=== PATIENT | male | born 1990 | race African-American/Black ===

== ENCOUNTER 2023-12-29 17:51 | Inpatient (IN) | payer OTHER ==
[~2023-12-29] VITALS: Ht 170.2 cm; Wt 68.0 kg
[~2023-12-29 17:51] MED LIST: ARIP20TA4 PO; MIRT-121 PO; MULT-1045 PO; QUET200T PO
[2023-12-29] MEDS: IV NORMAL SALINE 1000 ML BAG IV ONE (18:17)
[2023-12-29] MEDS ORDERED: PHENOBARBITAL SODIUM 130 MG/1 ML DISP.SYRIN ONE (18:23)
[2023-12-29] MEDS ORDERED: THIAMINE HCL 200 MG/2 ML VIAL ONE (18:25)
[2023-12-29 18:31] LABS: HEMOGLOBIN 13.6 g/dL (12.5-16.3)
[2023-12-29] MEDS: THIAMINE HCL 200 MG/2 ML VIAL IV ONE (18:37)
[2023-12-29] MEDS: PHENOBARBITAL SODIUM 130 MG/1 ML DISP.SYRIN IV ONE (18:37)
[2023-12-29 18:40] LABS: ETHANOL 403 MG/DL (0-10)
[2023-12-29 18:41] LABS: BASOPHILS # (AUTO) 0.1 K/UL (0.0-0.2); BASOPHILS % (AUTO) 0.6 % (0.0-2.0); DIFFERENTIAL COMMENT 0; EOSINOPHILS % (AUTO) 0.1 % (0.0-7.0); LYMPHOCYTES # (AUTO) 2.2 K/uL (0.8-4.8); LYMPHOCYTES % (AUTO) 20.7 % (20.5-51.5); MEAN CORPUSCULAR HEMOGLOBIN 29.1 uug (23.8-33.4); MEAN CORPUSCULAR HGB CONC 34 g/dL (32.5-36.3); MEAN CORPUSCULAR VOLUME 85.7 fL (73.0-96.2); MONOCYTES # (AUTO) 1.1 K/uL (0.1-1.30); MONOCYTES % (AUTO) 10.5 % (0.0-11.0); NEUTROPHILS # (AUTO) 7.1 K/uL (1.8-8.9); NEUTROPHILS % (AUTO) 68.1 % (38.5-71.5); PLATELET COUNT (AUTO) 345 K/uL (152-348); RED BLOOD CELL COUNT(AUTO) 4.67 MIL/uL (4.06-5.63); RED CELL DISTRIBUTION WIDTH 15.6 % (12.1-16.2); WHITE BLOOD COUNT (AUTO) 10.5 K/uL (3.6-10.2)
[2023-12-29 19:02] LABS: THYROID STIMULATING HORMONE 3.523 mIU/mL (0.358-3.740)
[2023-12-29 19:33] LABS: CARBON DIOXIDE 24 mmol/L (21-32); CHLORIDE 90 mmol/L (98-107); CREATININE 1.1 mg/dL (0.6-1.3); GLUCOSE 178 mg/dL (74-106); SODIUM SERUM 132 mmol/L (136-145); UREA NITROGEN, BLOOD 10 mg/dL (7-18)
[2023-12-29 19:41] LABS: ALANINE AMINOTRANSFERASE 38 U/L (16-63); ALKALINE PHOSPHATASE 91 U/L (50-136); ASPARTATE AMINOTRANSFERASE 29 U/L (15-37); BILIRUBIN,DIRECT 0.1 mg/dL (0.0-0.2); BILIRUBIN,TOTAL 0.4 mg/dL (0.2-1.0); TOTAL PROTEIN, SERUM 8.4 g/dL (6.4-8.2)
[2023-12-29 19:48] LABS: *BILIRUBIN,URIN NEGATIVE (NEGATIVE); *CLARITY,URINE CLEAR (CLEAR); *COLOR,URINE YELLOW (YELLOW); *KETONES,URINE NEGATIVE (NEGATIVE); *PROTEIN,URINE NEGATIVE (NEGATIVE); *UROBILINOGEN,URINE 0.2 E.U./dl (NORMAL); LEUKOCYTE ESTERASE ,URINE NEGATIVE (NEGATIVE); NITRITE, URINE NEGATIVE (NEGATIVE); UGLUCOSE NEGATIVE (NEGATIVE)
[2023-12-29 19:49] LABS: *BLOOD, URINE TRACE (NEGATIVE)
[2023-12-29 19:54] LABS: AMMONIA 33 umol/L (11-32)
[2023-12-29 19:55] LABS: ACETAMINOPHEN < 10.0 ug/mL (10-30)
[2023-12-29 20:00] LABS: *AMPHETAMINE, URINE NEGATIVE (NEGATIVE); *BARBITURATE, URINE NEGATIVE (NEGATIVE); *BENZODIAZEPINE, URINE NEGATIVE (NEGATIVE); *CANNABINOID, URINE NEGATIVE (NEGATIVE); *COCCAINE, URINE NEGATIVE (NEGATIVE); *OPIATE, URINE NEGATIVE (NEGATIVE); *PHENCYCLIDINE SCREEN,URINE NEGATIVE (NEGATIVE); BACTERIA,URINE NONE SEEN /HPF (NONE SEEN); RBC,URINE 0-3 /HPF (0-3); SQUAMOUS EPITHELIAL CELL,UR NONE SEEN /HPF (NONE SEEN); WBC,URINE NONE SEEN /HPF (0-3)
[2023-12-29 20:01] LABS: FENTANYL, URINE NEGATIVE (NEGATIVE)
[2023-12-29] MEDS ORDERED: LORAZEPAM 1 MG TABLET ONE (20:47)
[2023-12-29] MEDS: LORAZEPAM 0.5 MG TABLET PO ONE (20:49)
[2023-12-29 22:45] VITALS: BP 133/70; TEMP 98.6; O2SAT 99
[2023-12-29] MEDS ORDERED: ZOLPIDEM 5 MG TABLET PO PRN (23:30)
[2023-12-29] MEDS ORDERED: MAGNESIUM HYDROXIDE 30 ML LIQUID UDC PO PRN (23:30)
[2023-12-29] MEDS ORDERED: ONDANSETRON 4 MG/2 ML VIAL IV PRN (23:30)
[2023-12-29] MEDS ORDERED: REMEDY ESSENTIAL ZINC PASTE 113 GM TP PRN (23:30)
[2023-12-30] MEDS: IV NS 1000 ML 1,000 ML IV PRN (00:05)
[2023-12-30] MEDS ORDERED: THIAMINE HCL 200 MG/2 ML VIAL ONE (00:31)
[2023-12-30] MEDS ORDERED: FOLIC ACID 5 MG/ML VIAL IV ONE (00:31)
[2023-12-30] MEDS: ACETAMINOPHEN 325 MG TABLET PO PRN (02:51)
[2023-12-30 04:00] VITALS: BP 114/54; TEMP 98.4; O2SAT 98
[2023-12-30] MEDS: LORAZEPAM 1 MG TABLET PO PRN (05:27)
[2023-12-30] MEDS ORDERED: THIAMINE HCL INJ 100 MG in IV DEXTROSE 5% 50 ML IV SCH ×3 (06:30→18:00)
[2023-12-30 07:29] LABS: BASOPHILS % (AUTO) 0.9 % (0.0-2.0); EOSINOPHILS % (AUTO) 0.7 % (0.0-7.0); HEMATOCRIT 38.9 % (36.7-47.1); LYMPHOCYTES # (AUTO) 1.5 K/uL (0.8-4.8); LYMPHOCYTES % (AUTO) 28.9 % (20.5-51.5); MEAN CORPUSCULAR HEMOGLOBIN 29.1 uug (23.8-33.4); MEAN CORPUSCULAR HGB CONC 33 g/dL (32.5-36.3); MEAN CORPUSCULAR VOLUME 86.9 fL (73.0-96.2); MONOCYTES # (AUTO) 0.6 K/uL (0.1-1.30); NEUTROPHILS % (AUTO) 58.5 % (38.5-71.5); PLATELET COUNT (AUTO) 290 K/uL (152-348); RED BLOOD CELL COUNT(AUTO) 4.48 MIL/uL (4.06-5.63); RED CELL DISTRIBUTION WIDTH 16.1 % (12.1-16.2); WHITE BLOOD COUNT (AUTO) 5.1 K/uL (3.6-10.2)
[2023-12-30 07:34] LABS: DIFFERENTIAL COMMENT 1
[2023-12-30 07:42] LABS: CALCIUM 8.3 mg/dL (8.5-10.1); CREATININE 0.9 mg/dL (0.6-1.3); MAGNESIUM 1.9 mg/dL (1.8-2.4); POTASSIUM 3.8 mmol/L (3.5-5.1)
[2023-12-30 08:00] VITALS: BP 135/81; TEMP 97.6; O2SAT 96
[2023-12-30] MEDS: MULTIVITAMINS,THERAPEUTIC TABLET PO SCH (08:25)
[2023-12-30] MEDS: CHLORDIAZEPOXIDE HCL 25 MG CAPSULE PO SCH (08:25)
[2023-12-30] MEDS ORDERED: FOLIC ACID 1 MG in IV DEXTROSE 5% 50 ML IV SCH (09:00)
[2023-12-30] MEDS ORDERED: ARIPIPRAZOLE 10 MG TABLET PO SCH ×2 (09:00)
[2023-12-30] MEDS: FOLIC ACID 1 MG TABLET PO SCH (09:40)
[2023-12-30] MEDS: THIAMINE HCL 100 MG TABLET PO SCH (09:43)
[2023-12-30] MEDS: LORAZEPAM 2 MG/1 ML VIAL IV PRN (12:01)
[2023-12-30] MEDS ORDERED: TRAMADOL HCL 50 MG TABLET PO PRN (15:15)
[2023-12-30 15:35] VITALS: BP 136/91; TEMP 98.5; O2SAT 96
[2023-12-30] MEDS ORDERED: QUETIAPINE FUMARATE 200 MG TABLET PO SCH ×2 (21:00)
[2023-12-30] MEDS ORDERED: MIRTAZAPINE 15 MG TABLET PO SCH ×2 (21:00)
== END 2023-12-30 18:10 | disposition home or self-care (01) | DRG 816 ==
LOC: ER 17:52 → TELE3 22:31
PROVIDERS: ADMIT Nurse Practitioner Acute Care; ATTEND Nurse Practitioner Acute Care
DX: T51.0X1A Toxic effect of ethanol, accidental (unintentional), initial encounter (principal); G92.8 Other toxic encephalopathy; E87.1 Hypo-osmolality and hyponatremia; F10.239 Alcohol dependence with withdrawal, unspecified; E87.6 Hypokalemia; K76.0 Fatty (change of) liver, not elsewhere classified; E86.0 Dehydration; F10.229 Alcohol dependence with intoxication, unspecified; Y92.89 Other specified places as the place of occurrence of the external cause; Y90.8 Blood alcohol level of 240 mg/100 ml or more; R03.0 Elevated blood-pressure reading, without diagnosis of hypertension
CPT/HCPCS: 36415; 70450; 71045; 72125; 83735; 84100; 84443; 84484; 85025; 85730; 93005; A4663; G0378; G0480; J2060; J2560; J3411; J3490; J7040

== ENCOUNTER 2024-01-05 17:49 | Emergency (ER) | payer OTHER ==
[~2024-01-05] VITALS: Ht 167.6 cm; Wt 59.0 kg
[2024-01-05] MEDS: THIAMINE HCL 200 MG/2 ML VIAL IV ONE (19:00)
[2024-01-05] MEDS: PHENOBARBITAL SODIUM 130 MG/1 ML DISP.SYRIN IV ONE ×2 (19:00→22:53)
[2024-01-05 20:20] LABS: ETHANOL 206 MG/DL (0-10)
[2024-01-05 20:21] LABS: AMMONIA 24 umol/L (11-32)
[2024-01-05 20:22] LABS: CALCIUM 8.8 mg/dL (8.5-10.1); CARBON DIOXIDE 20 mmol/L (21-32); CHLORIDE 90 mmol/L (98-107); CREATININE 0.8 mg/dL (0.6-1.3); GLUCOSE 83 mg/dL (74-106); POTASSIUM 4.1 mmol/L (3.5-5.1); SODIUM SERUM 131 mmol/L (136-145); UREA NITROGEN, BLOOD 12 mg/dL (7-18)
[2024-01-05] MEDS ORDERED: THIAMINE HCL 200 MG/2 ML VIAL ONE (20:36)
[2024-01-05] MEDS ORDERED: PHENOBARBITAL SODIUM 130 MG/1 ML DISP.SYRIN ONE ×2 (20:36→22:51)
[2024-01-05 20:38] LABS: ALANINE AMINOTRANSFERASE 30 U/L (16-63); ALBUMIN 3.9 g/dL (3.4-5.0); ALKALINE PHOSPHATASE 90 U/L (50-136); ASPARTATE AMINOTRANSFERASE 42 U/L (15-37); BILIRUBIN,DIRECT 0.2 mg/dL (0.0-0.2); BILIRUBIN,TOTAL 0.8 mg/dL (0.2-1.0); LIPASE 63 U/L (16-77); TOTAL PROTEIN, SERUM 8.2 g/dL (6.4-8.2)
[2024-01-05 20:41] LABS: BASOPHILS # (AUTO) 0.1 K/UL (0.0-0.2); BASOPHILS % (AUTO) 1.2 % (0.0-2.0); DIFFERENTIAL COMMENT 0; HEMATOCRIT 40.7 % (36.7-47.1); HEMOGLOBIN 14.2 g/dL (12.5-16.3); LYMPHOCYTES # (AUTO) 2.7 K/uL (0.8-4.8); LYMPHOCYTES % (AUTO) 32.2 % (20.5-51.5); MEAN CORPUSCULAR HEMOGLOBIN 29.8 uug (23.8-33.4); MEAN CORPUSCULAR HGB CONC 35 g/dL (32.5-36.3); MEAN CORPUSCULAR VOLUME 85.2 fL (73.0-96.2); MONOCYTES # (AUTO) 0.6 K/uL (0.1-1.30); MONOCYTES % (AUTO) 7.4 % (0.0-11.0); NEUTROPHILS # (AUTO) 5.1 K/uL (1.8-8.9); NEUTROPHILS % (AUTO) 59.2 % (38.5-71.5); PLATELET COUNT (AUTO) 285 K/uL (152-348); RED BLOOD CELL COUNT(AUTO) 4.78 MIL/uL (4.06-5.63); RED CELL DISTRIBUTION WIDTH 16.8 % (12.1-16.2); WHITE BLOOD COUNT (AUTO) 8.5 K/uL (3.6-10.2)
[2024-01-05 20:44] LABS: ACETAMINOPHEN < 2.0 ug/mL (10-30)
[2024-01-05] MEDS: IV NORMAL SALINE 1000 ML BAG IV ONE (22:49)
[2024-01-06] MEDS ORDERED: PHENOBARBITAL SODIUM 130 MG/1 ML DISP.SYRIN ONE (01:08)
[2024-01-06] MEDS: PHENOBARBITAL SODIUM 130 MG/1 ML DISP.SYRIN IV ONE (01:12)
[2024-01-06] MEDS ORDERED: METOCLOPRAMIDE HCL 10 MG/2 ML VIAL ONE (01:57)
[2024-01-06] MEDS ORDERED: diphenhydrAMINE 50 MG/1 ML VIAL ONE (01:58)
[2024-01-06] MEDS: METOCLOPRAMIDE HCL 10 MG/2 ML VIAL IV ONE (02:04)
[2024-01-06] MEDS: diphenhydrAMINE 50 MG/1 ML VIAL IV ONE (02:04)
[2024-01-06] MEDS ORDERED: MAG HYDROX/AL HYDROX/SIMETH 30 ML LIQUID UDC ONE (05:25)
[2024-01-06] MEDS ORDERED: LIDOCAINE VISCUS 2% 15 ML UDC ONE (05:25)
[2024-01-06] MEDS: MAG HYDROX/AL HYDROX/SIMETH 30 ML LIQUID UDC PO ONE (05:28)
[2024-01-06] MEDS: LIDOCAINE VISCUS 2% 15 ML UDC MM ONE (05:28)
[2024-01-06 05:57] LABS: ETHANOL < 3 MG/DL (0-10)
[2024-01-06] MEDS ORDERED: CHLO25CA22 PO (10:00)
[2024-01-06 10:29] VITALS: O2SAT 98
== END 2024-01-06 10:31 | disposition home or self-care (01) ==
LOC: ER 17:50
DX: F10.129 Alcohol abuse with intoxication, unspecified (principal); R45.851 Suicidal ideations; Z79.899 Other long term (current) drug therapy
CPT/HCPCS: 80076; 80048; 82140; 83690; 85025; 85730; 84484; 36415 ×2; 93005; 71045; 99285; 96361; 96374; 96375 ×2; 96376 ×2; 80299; 80320 ×2; 74176; J2560 ×3; J3411; J1200; J2765; A4606; A4663; G0480

== ENCOUNTER 2024-05-05 17:03 | Inpatient (IN) | payer MEDICAID, OTHER ==
[~2024-05-05] VITALS: Ht 170.2 cm; Wt 72.6 kg
[~2024-05-05 17:03] MED LIST changes: +CHLO25CA22 PO
[2024-05-05] MEDS: IV NORMAL SALINE 1000 ML BAG IV ONE (17:34)
[2024-05-05] MEDS ORDERED: ONDANSETRON 4 MG/2 ML VIAL ONE (17:35)
[2024-05-05] MEDS ORDERED: LORAZEPAM 2 MG/1 ML VIAL ONE (17:36)
[2024-05-05] MEDS: ONDANSETRON 4 MG/2 ML VIAL IV ONE (17:42)
[2024-05-05] MEDS: LORAZEPAM 2 MG/1 ML VIAL IV ONE (17:42)
[2024-05-05 18:12] LABS: CALCIUM 8.4 mg/dL (8.5-10.1); CREATININE 1.1 mg/dL (0.6-1.3); POTASSIUM 4.5 mmol/L (3.5-5.1)
[2024-05-05 18:30] LABS: ALBUMIN 3.6 g/dL (3.4-5.0); BASOPHILS % (AUTO) 0.4 % (0.0-2.0); BILIRUBIN,DIRECT 0.2 mg/dL (0.0-0.2); DIFFERENTIAL COMMENT 0; HEMATOCRIT 42.7 % (36.7-47.1); HEMOGLOBIN 14.4 g/dL (12.5-16.3); LYMPHOCYTES # (AUTO) 0.8 K/uL (0.8-4.8); LYMPHOCYTES % (AUTO) 9.5 % (20.5-51.5); MEAN CORPUSCULAR HEMOGLOBIN 29.4 uug (23.8-33.4); MEAN CORPUSCULAR HGB CONC 34 g/dL (32.5-36.3); MEAN CORPUSCULAR VOLUME 87.4 fL (73.0-96.2); MONOCYTES # (AUTO) 0.4 K/uL (0.1-1.30); NEUTROPHILS # (AUTO) 7.3 K/uL (1.8-8.9); NEUTROPHILS % (AUTO) 85.1 % (38.5-71.5); PLATELET COUNT (AUTO) 158 K/uL (152-348); RED BLOOD CELL COUNT(AUTO) 4.88 MIL/uL (4.06-5.63); RED CELL DISTRIBUTION WIDTH 15.1 % (12.1-16.2); TOTAL PROTEIN, SERUM 7.9 g/dL (6.4-8.2); WHITE BLOOD COUNT (AUTO) 8.5 K/uL (3.6-10.2)
[2024-05-05 18:56] LABS: LACTIC ACID 5.5 mmol/L (0.4-2.0)
[2024-05-05] MEDS ORDERED: PIPERACILLIN/TAZOBACTAM/D5W 50 ML IV ONE (19:14)
[2024-05-05] MEDS ORDERED: MORPHINE SULFATE 4 MG/1 ML DISP.SYRIN ONE (19:15)
[2024-05-05] MEDS: MORPHINE SULFATE 4 MG/1 ML DISP.SYRIN IV ONE (19:18)
[2024-05-05] MEDS: PIPERACILLIN SODIUM/TAZOBACTAM 3.375 G in IV DEXTROSE 5% 50 ML IV ONE (19:20)
[2024-05-05 20:28] LABS: *BILIRUBIN,URIN NEGATIVE (NEGATIVE); *BLOOD, URINE 2+ (NEGATIVE); *CLARITY,URINE CLEAR (CLEAR); *COLOR,URINE DARK YELLOW (YELLOW); *KETONES,URINE 4+ (NEGATIVE); *UROBILINOGEN,URINE 0.2 E.U./dl (NORMAL); LEUKOCYTE ESTERASE ,URINE NEGATIVE (NEGATIVE); NITRITE, URINE NEGATIVE (NEGATIVE); PH,URINE 5.5 (5.0-8.0); UGLUCOSE NEGATIVE (NEGATIVE)
[2024-05-05 20:40] LABS: *AMPHETAMINE, URINE NEGATIVE (NEGATIVE); *BARBITURATE, URINE NEGATIVE (NEGATIVE); *BENZODIAZEPINE, URINE NEGATIVE (NEGATIVE); *CANNABINOID, URINE NEGATIVE (NEGATIVE); *COCCAINE, URINE NEGATIVE (NEGATIVE); *OPIATE, URINE POSITIVE (NEGATIVE); *PHENCYCLIDINE SCREEN,URINE NEGATIVE (NEGATIVE); *PROTEIN,URINE 3+ (NEGATIVE); FENTANYL, URINE NEGATIVE (NEGATIVE)
[2024-05-05] MEDS ORDERED: REMEDY ESSENTIAL ZINC PASTE 113 GM TP PRN (21:00)
[2024-05-05 21:07] VITALS: BP 135/89; TEMP 99; O2SAT 99
[2024-05-05] MEDS: QUETIAPINE FUMARATE 200 MG TABLET PO SCH (21:18)
[2024-05-05] MEDS: MIRTAZAPINE 15 MG TABLET PO SCH (21:18)
[2024-05-05] MEDS: ENOXAPARIN SODIUM 40 MG/0.4 ML DISP.SYRIN SQ SCH (21:49)
[2024-05-05 22:20] LABS: BACTERIA,URINE FEW /HPF (NONE SEEN); MUCUS,URINE MANY /LPF (0-FEW); SQUAMOUS EPITHELIAL CELL,UR NONE SEEN /HPF (NONE SEEN); WBC,URINE 0-3 /HPF (0-3)
[2024-05-05] MEDS: IV LACTATED RINGERS SOLUTION 1,000 ML IV PRN (22:29)
[2024-05-05] MEDS: LORAZEPAM 2 MG/1 ML VIAL IV PRN (22:33)
[2024-05-05 23:55] VITALS: BP 125/64; TEMP 98.9; O2SAT 98
[2024-05-06] MEDS: CHLORDIAZEPOXIDE HCL 25 MG CAPSULE PO SCH (02:48)
[2024-05-06] MEDS: ACETAMINOPHEN 325 MG TABLET PO PRN (02:49)
[2024-05-06] MEDS: IV NORMAL SALINE 1000 ML BAG IV ONE (02:49)
[2024-05-06 04:44] VITALS: BP 121/66; TEMP 99.1; O2SAT 97
[2024-05-06] MEDS ORDERED: CHLORDIAZEPOXIDE HCL 25 MG CAPSULE PO PRN (05:45)
[2024-05-06 07:36] LABS: THYROID STIMULATING HORMONE 2.615 mIU/mL (0.358-3.740)
[2024-05-06 08:00] VITALS: BP 136/66; TEMP 98.4; O2SAT 98
[2024-05-06] MEDS: MULTIVITAMINS,THERAPEUTIC TABLET PO SCH (08:24)
[2024-05-06 08:41] LABS: BASOPHILS % (AUTO) 0.7 % (0.0-2.0); EOSINOPHILS % (AUTO) 0.4 % (0.0-7.0); HEMATOCRIT 33.6 % (36.7-47.1); HEMOGLOBIN 11.3 g/dL (12.5-16.3); LYMPHOCYTES # (AUTO) 1.3 K/uL (0.8-4.8); LYMPHOCYTES % (AUTO) 27.9 % (20.5-51.5); MEAN CORPUSCULAR HEMOGLOBIN 29.3 uug (23.8-33.4); MEAN CORPUSCULAR HGB CONC 34 g/dL (32.5-36.3); MEAN CORPUSCULAR VOLUME 87.1 fL (73.0-96.2); MONOCYTES # (AUTO) 0.4 K/uL (0.1-1.30); MONOCYTES % (AUTO) 8.4 % (0.0-11.0); NEUTROPHILS # (AUTO) 2.8 K/uL (1.8-8.9); NEUTROPHILS % (AUTO) 62.6 % (38.5-71.5); PLATELET COUNT (AUTO) 100 K/uL (152-348); RED BLOOD CELL COUNT(AUTO) 3.86 MIL/uL (4.06-5.63); WHITE BLOOD COUNT (AUTO) 4.5 K/uL (3.6-10.2)
[2024-05-06 08:50] LABS: DIFFERENTIAL COMMENT 1
[2024-05-06] MEDS ORDERED: ARIPIPRAZOLE 10 MG TABLET PO SCH ×2 (09:00)
[2024-05-06 09:04] LABS: ALANINE AMINOTRANSFERASE 37 U/L (16-63); ALBUMIN 2.8 g/dL (3.4-5.0); ALKALINE PHOSPHATASE 71 U/L (50-136); ASPARTATE AMINOTRANSFERASE 68 U/L (15-37); BILIRUBIN,TOTAL 1.2 mg/dL (0.2-1.0); CALCIUM 8.1 mg/dL (8.5-10.1); CARBON DIOXIDE 26 mmol/L (21-32); CHLORIDE 97 mmol/L (98-107); CHOLESTEROL 183 mg/dL (<200); CREATININE 1.1 mg/dL (0.6-1.3); GLUCOSE 180 mg/dL (74-106); HDL CHOLESTEROL 67 mg/dL (40-60); MAGNESIUM 1.7 mg/dL (1.8-2.4); PHOSPHOROUS 1.6 mg/dL (2.5-4.9); POTASSIUM 3.4 mmol/L (3.5-5.1); SODIUM SERUM 131 mmol/L (136-145); TOTAL PROTEIN, SERUM 5.5 g/dL (6.4-8.2); TRIGLYCERIDES 164 MG/DL (30-150); UREA NITROGEN, BLOOD 13 mg/dL (7-18)
[2024-05-06] MEDS: THIAMINE HCL 100 MG TABLET PO SCH (09:13)
[2024-05-06] MEDS: MORPHINE SULFATE 2 MG/1 ML DISP.SYRIN IV PRN (09:13)
[2024-05-06] MEDS: FOLIC ACID 1 MG TABLET PO SCH (09:13)
[2024-05-06] MEDS: PANTOPRAZOLE SODIUM 40 MG VIAL IV SCH (09:13)
[2024-05-06 09:16] LABS: LIPASE > 375 U/L (16-77)
[2024-05-06] MEDS: NEUTRA PHOS PACKET PO ONE (10:35)
[2024-05-06] MEDS: MAGNESIUM SULFATE/D5W 100 ML IV SCH (10:36)
[2024-05-06] MEDS ORDERED: MORPHINE SULFATE 4 MG/1 ML DISP.SYRIN IV PRN (10:45)
[2024-05-06] MEDS: LORAZEPAM 2 MG/1 ML VIAL IV PRN (11:01)
[2024-05-06 11:39] VITALS: BP 132/81; TEMP 97; O2SAT 97
[2024-05-06] MEDS: MORPHINE SULFATE 2 MG/1 ML DISP.SYRIN IV ONE (12:21)
[2024-05-06 16:00] VITALS: BP 134/70; TEMP 98.8; O2SAT 99
[2024-05-06] MEDS: MORPHINE SULFATE 4 MG/1 ML DISP.SYRIN IV PRN (17:23)
[2024-05-06] MEDS: MAGNESIUM HYDROXIDE 30 ML LIQUID UDC PO PRN (18:43)
[2024-05-06 20:00] VITALS: BP 134/94; TEMP 97.5; O2SAT 97
[2024-05-06] MEDS ORDERED: MIRTAZAPINE 15 MG TABLET PO SCH (21:00)
[2024-05-06] MEDS ORDERED: QUETIAPINE FUMARATE 200 MG TABLET PO SCH (21:00)
[2024-05-07] VITALS (7 sets, daily range): BP systolic 121–140; BP diastolic 64–87; TEMP 97.6–98.7; O2SAT 97–100
[2024-05-07 07:25] LABS: BASOPHILS % (AUTO) 0.5 % (0.0-2.0); EOSINOPHILS # (AUTO) 0.1 K/uL (0.0-0.7); EOSINOPHILS % (AUTO) 1.4 % (0.0-7.0); HEMATOCRIT 39.5 % (36.7-47.1); HEMOGLOBIN 13.3 g/dL (12.5-16.3); LYMPHOCYTES # (AUTO) 1.2 K/uL (0.8-4.8); LYMPHOCYTES % (AUTO) 24.8 % (20.5-51.5); MEAN CORPUSCULAR HEMOGLOBIN 29.7 uug (23.8-33.4); MEAN CORPUSCULAR HGB CONC 34 g/dL (32.5-36.3); MEAN CORPUSCULAR VOLUME 88.4 fL (73.0-96.2); MONOCYTES # (AUTO) 0.3 K/uL (0.1-1.30); MONOCYTES % (AUTO) 7.3 % (0.0-11.0); NEUTROPHILS # (AUTO) 3.1 K/uL (1.8-8.9); PLATELET COUNT (AUTO) 102 K/uL (152-348); RED BLOOD CELL COUNT(AUTO) 4.46 MIL/uL (4.06-5.63); RED CELL DISTRIBUTION WIDTH 15.1 % (12.1-16.2); WHITE BLOOD COUNT (AUTO) 4.7 K/uL (3.6-10.2)
[2024-05-07 07:28] LABS: DIFFERENTIAL COMMENT 1
[2024-05-07 07:37] LABS: ALANINE AMINOTRANSFERASE 38 U/L (16-63); ALBUMIN 3.3 g/dL (3.4-5.0); ALKALINE PHOSPHATASE 80 U/L (50-136); ASPARTATE AMINOTRANSFERASE 60 U/L (15-37); BILIRUBIN,TOTAL 0.5 mg/dL (0.2-1.0); CARBON DIOXIDE 30 mmol/L (21-32); CHLORIDE 101 mmol/L (98-107); CREATININE 0.9 mg/dL (0.6-1.3); GLUCOSE 70 mg/dL (74-106); MAGNESIUM 1.9 mg/dL (1.8-2.4); POTASSIUM 3.5 mmol/L (3.5-5.1); SODIUM SERUM 139 mmol/L (136-145); TOTAL PROTEIN, SERUM 6.8 g/dL (6.4-8.2); UREA NITROGEN, BLOOD 10 mg/dL (7-18)
[2024-05-07 08:16] LABS: CALCIUM 8.8 mg/dL (8.5-10.1)
[2024-05-07 08:30] LABS: LIPASE > 375 U/L (16-77)
[2024-05-07] MEDS: ONDANSETRON 4 MG/2 ML VIAL IV PRN (08:53)
[2024-05-07] MEDS: NEUTRA PHOS PACKET PO ONE (10:56)
[2024-05-08] VITALS: BP 123/64; TEMP 98.4; O2SAT 97
[2024-05-08 04:00] VITALS: BP 123/61; TEMP 97.6; O2SAT 96
[2024-05-08 07:53] VITALS: BP 131/86; TEMP 97.9; O2SAT 98
[2024-05-08 12:49] VITALS: BP 133/93; TEMP 97.9; O2SAT 98
[2024-05-08 15:55] VITALS: BP 135/89; TEMP 97.8; O2SAT 98
[2024-05-08] MEDS: PANTOPRAZOLE SODIUM 40 MG TABLET.DR PO SCH (16:50)
[2024-05-08 20:00] VITALS: BP 130/80; TEMP 98.8; O2SAT 95
[2024-05-08] MEDS: CHLORDIAZEPOXIDE HCL 25 MG CAPSULE PO PRN (22:28)
[2024-05-09 04:00] VITALS: BP 103/68; TEMP 96.5; O2SAT 97
[2024-05-09 07:53] LABS: BASOPHILS % (AUTO) 0.9 % (0.0-2.0); EOSINOPHILS # (AUTO) 0.2 K/uL (0.0-0.7); EOSINOPHILS % (AUTO) 3.4 % (0.0-7.0); HEMATOCRIT 41.8 % (36.7-47.1); HEMOGLOBIN 13.9 g/dL (12.5-16.3); LYMPHOCYTES # (AUTO) 2.2 K/uL (0.8-4.8); LYMPHOCYTES % (AUTO) 43.3 % (20.5-51.5); MEAN CORPUSCULAR HEMOGLOBIN 29.6 uug (23.8-33.4); MEAN CORPUSCULAR HGB CONC 33 g/dL (32.5-36.3); MEAN CORPUSCULAR VOLUME 88.7 fL (73.0-96.2); MONOCYTES # (AUTO) 0.5 K/uL (0.1-1.30); NEUTROPHILS # (AUTO) 2.2 K/uL (1.8-8.9); NEUTROPHILS % (AUTO) 43.4 % (38.5-71.5); PLATELET COUNT (AUTO) 165 K/uL (152-348); RED BLOOD CELL COUNT(AUTO) 4.71 MIL/uL (4.06-5.63); RED CELL DISTRIBUTION WIDTH 14.7 % (12.1-16.2); WHITE BLOOD COUNT (AUTO) 5.1 K/uL (3.6-10.2)
[2024-05-09 08:04] LABS: ALBUMIN 3.5 g/dL (3.4-5.0); BILIRUBIN,TOTAL 0.4 mg/dL (0.2-1.0); CALCIUM 9.1 mg/dL (8.5-10.1); CREATININE 0.9 mg/dL (0.6-1.3); MAGNESIUM 1.8 mg/dL (1.8-2.4); PHOSPHOROUS 3.7 mg/dL (2.5-4.9); POTASSIUM 3.9 mmol/L (3.5-5.1); TOTAL PROTEIN, SERUM 7.6 g/dL (6.4-8.2)
[2024-05-09 08:07] LABS: DIFFERENTIAL COMMENT 1
[2024-05-09 11:49] VITALS: BP 126/68; TEMP 98.2; O2SAT 97
[2024-05-09] MEDS: MIRALAX 17 GM POWD.PACK PO SCH (14:36)
[2024-05-09] MEDS: BISACODYL 10 MG SUPP.RECT RC ONE (14:37)
[2024-05-09 16:00] VITALS: BP 116/56; TEMP 98.7; O2SAT 98
[2024-05-09 20:00] VITALS: BP_SYST 156; BP_SYST 179; BP_DIAS 80; BP_DIAS 92; TEMP 98.2; O2SAT 94; O2SAT 98
[2024-05-09] MEDS: LORAZEPAM 1 MG TABLET PO PRN (22:34)
[2024-05-10] VITALS: BP 124/75; TEMP 98.3; O2SAT 97
[2024-05-10 00:02] LABS: ABG BASE EXCESS -9.5 mmol/L (-2.0-2.0); ABG HCO3 13.9 mmol/L (22.0-26.0); ABG PCO2 24.8 mmHg (35.0-48.0); ABG PH 7.366 (7.340-7.440); ABG SITE RIGHT BRACHIAL; ABG TOTAL HEMOGLOBIN 14.1 G/dL (14.0-18.0); AaDO2 85.1 mmHg; COHb 0.3 % (0.0-3.9); MetHb 0.4 % (0.0-1.5)
[2024-05-10 06:00] VITALS: BP 110/71; TEMP 97.8; O2SAT 100
[2024-05-10 08:00] VITALS: BP 114/71; TEMP 97.8; O2SAT 99
[2024-05-10 08:03] LABS: CALCIUM 8.8 mg/dL (8.5-10.1); CREATININE 0.9 mg/dL (0.6-1.3); MAGNESIUM 1.9 mg/dL (1.8-2.4); POTASSIUM 3.9 mmol/L (3.5-5.1)
[2024-05-10] MEDS: ARIPIPRAZOLE 10 MG TABLET PO SCH (08:31)
[2024-05-10] MEDS: OXYCODONE/APAP 5-325 MG TABLET PO PRN (10:22)
[2024-05-10 11:51] VITALS: BP 117/62; TEMP 97.7; O2SAT 99
[2024-05-10] MEDS: CLONAZEPAM 1 MG TABLET PO PRN (13:05)
[2024-05-10 15:54] VITALS: BP 118/66; TEMP 97.8; O2SAT 99
[2024-05-10 20:00] VITALS: BP 108/51; TEMP 98.2; O2SAT 96
[2024-05-10] MEDS: MIRTAZAPINE 15 MG TABLET PO SCH (20:25)
[2024-05-10] MEDS: QUETIAPINE FUMARATE 200 MG TABLET PO SCH (20:27)
[2024-05-11 06:00] VITALS: BP 97/48; TEMP 98.1; O2SAT 100
[2024-05-11 07:43] LABS: CALCIUM 8.7 mg/dL (8.5-10.1); CARBON DIOXIDE 26 mmol/L (21-32); CHLORIDE 107 mmol/L (98-107); GLUCOSE 113 mg/dL (74-106); POTASSIUM 3.5 mmol/L (3.5-5.1); SODIUM SERUM 142 mmol/L (136-145); UREA NITROGEN, BLOOD 15 mg/dL (7-18)
[2024-05-11 07:54] LABS: LIPASE > 375 U/L (16-77)
[2024-05-11 11:54] VITALS: BP 110/67; TEMP 97.9; O2SAT 96
[2024-05-11] MEDS: CLONAZEPAM 1 MG TABLET PO ONE (12:01)
[2024-05-11 16:30] VITALS: BP 118/79; TEMP 98.6; O2SAT 98
[2024-05-12 07:13] VITALS: BP 118/71; TEMP 98.1; O2SAT 98
[2024-05-12] MEDS ORDERED: ARIP20TA4 PO (08:58)
[2024-05-12] MEDS ORDERED: OXYC-128 PO (08:58)
[2024-05-12] MEDS ORDERED: THIA100T68 PO (08:58)
[2024-05-12] MEDS ORDERED: MIRT-73 PO (08:58)
[2024-05-12] MEDS ORDERED: QUET200T PO (08:58)
[2024-05-12] MEDS ORDERED: PANT40TA2 PO (08:58)
== END 2024-05-12 10:20 | disposition home or self-care (01) | DRG 426 ==
LOC: ER 17:04 → TELE3 20:35 → MEDSURG3 05-08 10:05
PROVIDERS: ADMIT Nurse Practitioner Acute Care; ATTEND Nurse Practitioner Acute Care
PROC: 05HC33Z Insertion of Infusion Device into Left Basilic Vein, Percutaneous Approach (ICD-10-PCS; principal; 2024-05-08)
DX: E87.1 Hypo-osmolality and hyponatremia (principal); E87.29 Other acidosis; K86.0 Alcohol-induced chronic pancreatitis; E83.39 Other disorders of phosphorus metabolism; K70.0 Alcoholic fatty liver; K70.9 Alcoholic liver disease, unspecified; F31.9 Bipolar disorder, unspecified; F10.229 Alcohol dependence with intoxication, unspecified; Y90.6 Blood alcohol level of 120-199 mg/100 ml; E87.6 Hypokalemia; F41.9 Anxiety disorder, unspecified; F19.10 Other psychoactive substance abuse, uncomplicated; F10.239 Alcohol dependence with withdrawal, unspecified; E86.1 Hypovolemia; E83.42 Hypomagnesemia; Z87.891 Personal history of nicotine dependence
CPT/HCPCS: 36415; 36600; 71045; 82803; 83605; 83690; 83735; 84100; 84443; 84484; 85025; 85730; 87040; 93005; G0378; G0480; J1650; J2060; J2270; J2405; J2470; J2543; J3475; J7040; J7120